=== PATIENT | male | born 1950 | race Caucasian/White ===

== ENCOUNTER 2021-01-23 16:44 | Emergency (ER) | payer MEDICARE, BC ==
--- NOTE | 2021-01-23 17:38 | EDM.PDOC ---
ED HPI GENERAL MEDICAL PROBLEM - General Chief Complaint: Laceration Stated Complaint: LACERATION TO NOSE Time Seen by Provider: 01/23/21 17:00 Source of Information: Reports: Patient History Limitations: Reports: No Limitations - History of Present Illness INITIAL COMMENTS - FREE TEXT/NARRATIVE: Patient presented to the ED because of a facial injury. His 600 lb cow bumped him and fell face down on a concrete. He sustained abrasion and a 1 cm laceration on the bridge of his nose. There was no LOC after the fall, denies having any headache, nausea or vomiting. NASAL BRIDGE/ FOREHEAD Pain Score (Numeric/FACES): 4 - Related Data Allergies Allergy/AdvReac Type Severity Reaction Status Date / Time No Known Allergies Allergy Verified 01/23/21 17:48 Home Meds: Home Meds Escitalopram [Lexapro] 20 mg PO DAILY 01/23/21 [History] SitaGLIPtin [Januvia] 100 mg PO DAILY 01/23/21 [History] atorvaSTATin [Lipitor] 10 mg PO BEDTIME 01/23/21 [History] metFORMIN [Glucophage] 500 mg PO BIDMEALS 01/23/21 [History] Past Medical History - Past Health History Medical/Surgical History: Denies Medical/Surgical History ED ROS GENERAL - Review of Systems Review Of Systems: See Below Constitutional: Reports: No Symptoms HEENT: Reports: No Symptoms Respiratory: Reports: No Symptoms Cardiovascular: Reports: No Symptoms Endocrine: Reports: No Symptoms GI/Abdominal: Reports: No Symptoms : Reports: No Symptoms Musculoskeletal: Reports: No Symptoms Skin: Reports: Wound Neurological: Reports: No Symptoms ED EXAM, SKIN/RASH Exam: See Below Exam Limited By: No Limitations General Appearance: Alert, No Apparent Distress Eye Exam: Bilateral Eye: PERRL Ears: Normal External Exam, Normal Canal, Hearing Grossly Normal, Normal TMs Nose: Normal Inspection, Normal Mucosa, No Blood Throat/Mouth: Normal Inspection, Normal Lips, Normal Teeth Head: Atraumatic, Normocephalic Neck: Normal Inspection, Supple, Non-Tender, Full Range of Motion Respiratory/Chest: No Respiratory Distress, Lungs Clear, Normal Breath Sounds, No Accessory Muscle Use, Chest Non-Tender Cardiovascular: Normal Peripheral Pulses, Regular Rate, Rhythm, No Edema, No Gallop, No JVD, No Murmur, No Rub GI/Abdominal: Normal Bowel Sounds, Soft, Non-Tender, No Organomegaly, No Distention, No Abnormal Bruit, No Mass Back Exam: Normal Inspection, Full Range of Motion Extremities: Normal Inspection, Normal Range of Motion, Non-Tender, No Pedal Edema, Normal Capillary Refill Neurological: Alert, Oriented, CN II-XII Intact, Normal Cognition Course - Vital Signs Text/Narrative:: Refused to have facial and head CT No suturing was done on the laceration because it's shallow and has stopped bleeding UTD with immunization Last Recorded V/S: Last Vital Signs Temp 37.0 C 01/23/21 16:55 Pulse 77 01/23/21 16:55 Resp 18 01/23/21 16:55 BP 162/76 H 01/23/21 16:55 Pulse Ox 96 01/23/21 16:55 Departure - Departure Time of Disposition: 17:35 Disposition: Home, Self-Care 01 Condition: Good Clinical Impression: Facial injury, Abrasion - Discharge Information Instructions: Facial or Scalp Contusion, [id number], Abrasion, [id number] Referrals: Ryley Rascon MD [Primary Care Provider] - Forms: ED Department Discharge Additional Instructions: Please read discharge instructions on facial injury and laceration Apply an antibiotic ointment twice daily for 7 days on the wound Cover your wound when you are working outside. When you are inside your house keep it uncovered Follow up as needed Sepsis Event Note (ED) - Focused Exam Vital Signs: Vital Signs Temp Pulse Resp BP Pulse Ox 01/23/21 16:55 37.0 C 77 18 162/76 H 96
== END 2021-01-23 17:40 | disposition home or self-care (01) ==
LOC: FB.ED 16:44
DX: S00.81XA Abrasion of other part of head, initial encounter (principal); Z79.899 Other long term (current) drug therapy; Z79.84 Long term (current) use of oral hypoglycemic drugs; W18.39XA Other fall on same level, initial encounter
CPT/HCPCS: 99283